=== PATIENT | female | born 1990 | race Hispanic/Latino ===

== ENCOUNTER 2019-10-14 11:55 | Emergency (ER) | payer SELFPAY ==
[~2019-10-14] VITALS: Ht 162.6 cm; Wt 108.0 kg
[2019-10-14] MEDS ORDERED: NAPROSYN500 MG PO (12:26)
== END 2019-10-14 12:50 | disposition home or self-care (01) ==
LOC: ED 11:55
DX: G62.9 Polyneuropathy, unspecified (principal); M77.9 Enthesopathy, unspecified; F17.200 Nicotine dependence, unspecified, uncomplicated
CPT/HCPCS: 99283

== ENCOUNTER 2019-12-05 11:31 | Emergency (ER) | payer BC ==
[~2019-12-05] VITALS: Ht 162.6 cm; Wt 108.0 kg
[~2019-12-05 11:31] MED LIST: NAPROSYN500 MG PO
== END 2019-12-05 12:25 | disposition home or self-care (01) ==
LOC: ED 11:31
DX: G56.01 Carpal tunnel syndrome, right upper limb (principal); F17.200 Nicotine dependence, unspecified, uncomplicated
CPT/HCPCS: 99283

== ENCOUNTER 2020-02-17 14:37 | Emergency (ER) | payer BC ==
[~2020-02-17] VITALS: Ht 162.6 cm; Wt 108.0 kg
== END 2020-02-17 15:55 | disposition home or self-care (01) ==
LOC: ED 14:37
DX: S51.832A Puncture wound without foreign body of left forearm, initial encounter (principal); W22.8XXA Striking against or struck by other objects, initial encounter; F17.200 Nicotine dependence, unspecified, uncomplicated
CPT/HCPCS: 99282